=== PATIENT | male | born 1985 | race Caucasian/White ===

== ENCOUNTER 2024-07-17 11:32 | Day surgery (SDC) | payer OTHER ==
[~2024-07-17] VITALS: Ht 190.5 cm; Wt 93.4 kg
[2024-07-17] MEDS ORDERED: CeFAZolin Sodium 2,000 MG VIAL ONE (12:10)
[2024-07-17] MEDS ORDERED: Lactated Ringer's 1,000 ML IV ONE ×2 (12:11→12:27)
[2024-07-17] MEDS ORDERED: NS 50 ML IV ONE (12:11)
[2024-07-17] MEDS ORDERED: Dexamethasone Sod Phos 10 MG/ML 1ML VIAL ONE (13:03)
[2024-07-17] MEDS ORDERED: Metoclopramide HCl 5MG / ML 2ML Vial ONE (13:03)
[2024-07-17] MEDS ORDERED: Rocuronium Bromide 10 MG/ML 5ML Injection IV ONE (13:03)
[2024-07-17] MEDS ORDERED: Ondansetron HCl 2 MG / ML 2ML Vial ONE (13:03)
[2024-07-17] MEDS ORDERED: propofoL 20 ML IV ONE ×2 (13:03)
[2024-07-17] MEDS ORDERED: FentaNYL Citrate 50 MCG/ML 2 ML Injection ONE (13:05)
[2024-07-17] MEDS ORDERED: EPINEPhrine HCl 1 MG/ML 1ML Amp ONE (13:09)
[2024-07-17] MEDS ORDERED: Bupivacaine 0.5% HCl 5 MG/ML 30MLVIAL ONE (13:20)
[2024-07-17] MEDS ORDERED: HYDROmorphone HCl/Pf 1MG SYR ONE (13:36)
[2024-07-17] MEDS ORDERED: Bupivacaine 0.5% HCl 5 MG/ML 30MLVIAL INJ ONE (13:52)
[2024-07-17] MEDS ORDERED: EPINEPhrine HCl 1 MG/ML 1ML Amp XX ONE (13:53)
--- NOTE | 2024-07-17 13:54 | NUR ---
07/17/24 1354 Blair Pruitt POPLITEAL BLOCK PLACED IN OR WITHOUT DIFFICULTY.PT TOLERATEDPROCEDURE WELL.
[2024-07-17] MEDS ORDERED: Sugammadex Sodium 200 MG/2ML SDV (100 MG/ML) ONE (14:22)
[2024-07-17 15:00] VITALS: BP 113/69
--- NOTE | 2024-07-17 16:11 | NUR ---
07/17/24 1611 Herminio Morgan PT'S REPORTED THAT ISAAKS IS OUT OF STOCK OF PAIN MEDICATION PERSCRIBED TO PT. SHE REQUESTED PERSCRIPTION BE SENT TO [facility]. DR. CASTELAN WAS CALLED AND STATED HE WOULD SEND ESCRIPT TO [facility]. PT DENIED PAIN AND NAUSEA UPON D/C. HE APPEARED ALERT AND RELAXED, AND HE EXPRESSED READINESS TO RETURN HOME.
== END 2024-07-17 15:55 | disposition home or self-care (01) ==
LOC: ORSCSDS 11:32
PROVIDERS: Podiatrist Foot & Ankle Surgery
PROC: 0SBF4ZZ Excision of Right Ankle Joint, Percutaneous Endoscopic Approach (ICD-10-PCS; principal; 2024-07-17 13:00)
PROC: 0MQQ0ZZ Repair Right Ankle Bursa and Ligament, Open Approach (ICD-10-PCS; principal; 2024-07-17 13:00)
DX: M25.371 Other instability, right ankle (principal); M65.971 Unspecified synovitis and tenosynovitis, right ankle and foot
CPT/HCPCS: C1713; J0171; J0690; J1100; J1170; J2405; J2704; J2765; J3010; J7120